=== PATIENT | male | born 1995 | race Caucasian/White ===

== ENCOUNTER 2017-08-16 14:25 | Emergency (ER) | payer MEDICAID ==
[~2017-08-16] VITALS: Ht 170.2 cm; Wt 72.6 kg
[2017-08-16 14:50] VITALS: BP 138/72
[2017-08-16] MEDS ORDERED: LIDOCAINE 1% (LOCAL ANESTH.) PF 5ml SDV IN ONE (15:00)
[2017-08-16] MEDS ORDERED: cefTRIAXone W LIDOCAINE 1 GM IM IM ONE (16:15)
[2017-08-16] MEDS ORDERED: LIDOCAINE 1% (LOCAL ANESTH.) PF 5ml SDV ONE (16:46)
== END 2017-08-16 17:32 | disposition home or self-care (01) ==
LOC: EDBD 14:25 → ER 14:25
DX: S01.112A Laceration without foreign body of left eyelid and periocular area, initial encounter (principal); W18.49XA Other slipping, tripping and stumbling without falling, initial encounter; Y93.67 Activity, basketball; Y99.8 Other external cause status; Y92.89 Other specified places as the place of occurrence of the external cause
CPT/HCPCS: 12013; 70450; 96372; 99284; J0696

== ENCOUNTER 2020-11-30 18:51 | Emergency (ER) | payer MEDICAID ==
[~2020-11-30] VITALS: Ht 170.2 cm; Wt 99.8 kg
[2020-11-30 21:34] VITALS: BP 101/55
== END 2020-11-30 22:23 | disposition home or self-care (01) ==
LOC: EDBD 18:51 → EDUNIT# 18:51 → ER 18:53
DX: R22.43 Localized swelling, mass and lump, lower limb, bilateral (principal); M79.604 Pain in right leg; M79.605 Pain in left leg
CPT/HCPCS: 83880; 93970

== ENCOUNTER 2021-02-22 17:05 | Emergency (ER) | payer MEDICAID ==
[~2021-02-22] VITALS: Ht 170.2 cm; Wt 90.7 kg
[2021-02-22 18:28] LABS: Basophils # (auto) 0 10 ^3/uL (0-0.2); Basophils % (auto) 0.3 % (0.0-2.0); Eosinophils # (auto) 0.1 10 ^3/uL (0-0.8); Eosinophils % (auto) 0.8 % (0.0-7.0); Hematocrit 48.9 % (41.0-53.0); Hemoglobin 16.1 g/dL (13.5-17.5); Lymphocytes % (auto) 24.9 % (10.0-50.0); Mean Corpuscular Hemoglobin 29.2 pg (28.0-32.0); Mean Corpuscular Volume 88.5 fL (80.0-100.0); Monocytes # (auto) 0.7 10 ^3/uL (0-1.3); Monocytes % (auto) 8.9 % (0.0-12.0); Neutrophils # (auto) 5.2 10 ^3/uL (1.6-8.6); Neutrophils % (auto) 65.1 % (37.0-80.0); Nucleated Red Blood Cells % 0.1 %; Red Blood Cells 5.53 10^6/uL (4.5-5.90); Red Cell Distribution Width 13.7 % (11.8-14.3); White Blood Cell 7.9 10^3/uL (4.4-10.8)
[2021-02-22 18:38] LABS: Albumin 3.5 g/dL (3.4-5.0); Blood Urea Nitrogen 8 mg/dL (7-18); Calcium 9.6 mg/dL (8.5-10.1); Chloride 103 mmol/L (98-107); Potassium 3.7 mmol/L (3.5-5.1); Sodium 137 mmol/L (136-145)
[2021-02-22 18:41] LABS: Anion Gap 10 (5-15); BUN/Creatinine Ratio 6.6; Carbon Dioxide 24 mmol/L (21-32); GFR African American 92 mL/min; GFR Non-African American 76 mL/min; Glucose 87 mg/dL (74-106); Magnesium 2.2 mg/dL (1.6-2.6)
[2021-02-22 19:15] LABS: Alanine Aminotransferase 13 U/L (16-61); Alkaline Phosphatase 52 U/L (45-117); Aspartate Aminotransferase 7 U/L (15-37); Bilirubin, Total 0.5 mg/dL (0.2-1.0); Total Protein 7.7 g/dL (6.4-8.2)
[2021-02-23 00:49] VITALS: BP 101/77
[2021-02-23 02:38] LABS: Urine Bacteria FEW /hpf (None Seen); Urine Blood Negative /uL (Negative); Urine Hyaline Cast MANY /lpf (0 - 2); Urine Mucus FEW (None Seen); Urine Specific Gravity 1.033 (1.001-1.035); Urine WBC 6 /hpf (0 - 3)
== END 2021-02-23 01:00 | disposition home or self-care (01) ==
LOC: EDBD 17:05 → EDUNIT# 17:05 → ER 17:08
DX: R60.0 Localized edema (principal); N50.811 Right testicular pain; R19.7 Diarrhea, unspecified; F84.0 Autistic disorder; F32.9 Major depressive disorder, single episode, unspecified; F41.9 Anxiety disorder, unspecified
CPT/HCPCS: 36415; 71045; 76870; 80053; 81001; 83735; 83880; 84443; 84484; 85025; 93005

== ENCOUNTER 2021-02-23 14:46 | Emergency (ER) | payer MEDICAID ==
[~2021-02-23] VITALS: Ht 170.2 cm; Wt 90.7 kg
[2021-02-23 14:49] VITALS: BP 113/70
== END 2021-02-23 15:21 | disposition left against medical advice (07) ==
LOC: ER 14:46 → EDBD 14:46 → ER 15:21
DX: R11.0 Nausea (principal); Z53.21 Procedure and treatment not carried out due to patient leaving prior to being seen by health care provider

== ENCOUNTER 2021-03-25 06:50 | Emergency (ER) | payer MEDICAID ==
[~2021-03-25] VITALS: Ht 170.2 cm; Wt 90.7 kg
[2021-03-25 08:45] VITALS: BP 122/84
== END 2021-03-25 09:30 | disposition home or self-care (01) ==
LOC: EDBD 06:50 → ER 06:50
DX: S46.912A Strain of unspecified muscle, fascia and tendon at shoulder and upper arm level, left arm, initial encounter (principal); S09.90XA Unspecified injury of head, initial encounter; S00.81XA Abrasion of other part of head, initial encounter; Z59.00 Homelessness unspecified; V43.92XA Unspecified car occupant injured in collision with other type car in traffic accident, initial encounter; Y93.89 Activity, other specified; Y92.410 Unspecified street and highway as the place of occurrence of the external cause; Y99.8 Other external cause status
CPT/HCPCS: 70450; 72125; 73030

== ENCOUNTER 2021-09-25 15:07 | Emergency (ER) | payer MEDICAID ==
[~2021-09-25] VITALS: Ht 170.2 cm; Wt 97.5 kg
[2021-09-25 17:26] LABS: Potassium 4.4 mmol/L (3.5-5.1)
[2021-09-25 17:30] LABS: Bilirubin, Total 0.4 mg/dL (0.2-1.0); Calcium 9.3 mg/dL (8.5-10.1)
[2021-09-25 18:40] LABS: Basophils # (auto) 0.1 10 ^3/uL (0-0.2); Basophils % (auto) 0.6 % (0.0-2.0); Eosinophils # (auto) 0.2 10 ^3/uL (0-0.8); Eosinophils % (auto) 1.7 % (0.0-7.0); Hematocrit 41.9 % (41.0-53.0); Lymphocytes # (auto) 2.3 10 ^3/uL (0.4-5.4); Lymphocytes % (auto) 22.9 % (10.0-50.0); Mean Corpuscular Hemoglobin 29.8 pg (28.0-32.0); Mean Corpuscular Hgb Conc. 33.5 g/dL (32.0-36.0); Mean Corpuscular Volume 88.8 fL (80.0-100.0); Monocytes % (auto) 9.6 % (0.0-12.0); Neutrophils # (auto) 6.5 10 ^3/uL (1.6-8.6); Neutrophils % (auto) 65.2 % (37.0-80.0); Red Blood Cells 4.72 10^6/uL (4.5-5.90); Red Cell Distribution Width 13.5 % (11.8-14.3); White Blood Cell 9.9 10^3/uL (4.4-10.8)
[2021-09-25 19:30] VITALS: BP 105/72
== END 2021-09-25 20:50 | disposition home or self-care (01) ==
LOC: ER 15:23
DX: R42 Dizziness and giddiness (principal); Z59.00 Homelessness unspecified
CPT/HCPCS: 36415; 80053; 80164; 93005

== ENCOUNTER 2022-06-13 19:02 | Emergency (ER) | payer MEDICAID ==
[~2022-06-13] VITALS: Ht 170.2 cm; Wt 100.0 kg
[2022-06-13 20:40] LABS: Basophils # (auto) 0 10 ^3/uL (0-0.2); Basophils % (auto) 0.2 % (0.0-2.0); Eosinophils # (auto) 0.1 10 ^3/uL (0-0.8); Eosinophils % (auto) 1.1 % (0.0-7.0); Hematocrit 43.2 % (41.0-53.0); Hemoglobin 13.8 g/dL (13.5-17.5); Lymphocytes # (auto) 2.9 10 ^3/uL (0.4-5.4); Lymphocytes % (auto) 40.6 % (10.0-50.0); Mean Corpuscular Hemoglobin 30.7 pg (28.0-32.0); Mean Corpuscular Hgb Conc. 32.1 g/dL (32.0-36.0); Mean Corpuscular Volume 95.7 fL (80.0-100.0); Monocytes # (auto) 0.8 10 ^3/uL (0-1.3); Monocytes % (auto) 10.6 % (0.0-12.0); Neutrophils # (auto) 3.4 10 ^3/uL (1.6-8.6); Neutrophils % (auto) 47.5 % (37.0-80.0); Red Blood Cells 4.51 10^6/uL (4.5-5.90); Red Cell Distribution Width 13.9 % (11.8-14.3); White Blood Cell 7.2 10^3/uL (4.4-10.8)
[2022-06-13 20:55] LABS: Potassium 4.4 mmol/L (3.5-5.1)
[2022-06-13 20:57] LABS: BUN/Creatinine Ratio 15.7
[2022-06-13 21:00] LABS: Bilirubin, Total 0.2 mg/dL (0.2-1.0); Total Protein 6.9 g/dL (6.4-8.2)
[2022-06-14] MEDS ORDERED: MAGNESIUM CITRATE SOLUTION 300 ML BTL PO ONE (03:15)
[2022-06-14] MEDS ORDERED: DOCU-94 PO (03:15)
[2022-06-14] MEDS ORDERED: KETOROLAC TROMETH 30 MG/ML 1ML VIAL IV ONE (03:45)
[2022-06-14] MEDS ORDERED: POLYETHYLENE GLYCOL 17 GM PWDR PO ONE (03:45)
[2022-06-14 03:55] VITALS: BP 98/64
== END 2022-06-14 03:55 | disposition home or self-care (01) ==
LOC: EDUNIT# 19:02 → EDBD 19:02 → ER 19:02
DX: K92.2 Gastrointestinal hemorrhage, unspecified (principal); K59.00 Constipation, unspecified; K92.1 Melena; F41.9 Anxiety disorder, unspecified; F32.9 Major depressive disorder, single episode, unspecified; F20.9 Schizophrenia, unspecified; Z59.00 Homelessness unspecified
CPT/HCPCS: 36415; 80053; 83690; 85025; 96374; 99283; J1885